=== PATIENT | female | born 1965 | race Two or more races ===

== ENCOUNTER 2021-06-13 09:44 | Outpatient (CLI) | payer SELFPAY ==
--- NOTE | 2021-06-13 08:30 | EMB_PTH ---
PATIENT: BARRIE BAUER LOC: [facility] U#:[id number] AGE/SX: 56/F ROOM: RE06/13/[address]: Dr. Mike Wolff MD : [id number] BED: DIS: 06/13/2021 SPEC #: [id number] RECD: 06/13/21 10:48 STATUS: NADIYA CAMACHO #: [id number] RACIEL: 06/13/21 08:[address]: Mike Wolff DEPT: SURGICAL PATHOLOGY RECD BY: Miranda Muñoz Tissues: Endometrium, NOS Procedures: Surgery Specimen Level IV HEADER OPERATION: Endometrial biopsy PRE-OP DIAGNOSIS: Postmenopausal bleeding TISSUE SUBMITTED: Endometrial biopsy MICROSCOPIC DIAGNOSIS Endometrial biopsy: Proliferative endometrium. KESHA:fercho 06/14/2021 MICROSCOPIC DESCRIPTION Slides are reviewed. GROSS DESCRIPTION Received in fixative is one container labeled with the patient's name and designated endometrial biopsy. The specimen consists of multiple fragments of pink hemorrhagic soft tissue that in aggregate measure 2 x 0.5 x 0.1 cm. The specimen is totally submitted in one cassette. / KESHA:fercho 06/13/2021 TC:5 CPT: 83520
== END 2021-06-13 23:59 | disposition home or self-care (01) ==
LOC: LABSPEC 09:45
PROVIDERS: Visit Provider Obstetrics & Gynecology
DX: N95.0 Postmenopausal bleeding (principal)
CPT/HCPCS: 88305